=== PATIENT | male | born 1975 | race Caucasian/White ===

== ENCOUNTER 2023-12-30 14:06 | Emergency (ER) | payer MEDICAID, SELFPAY ==
[2023-12-30] VITALS (38 sets, daily range): BP systolic 172–216; BP diastolic 80–122; PULSE 58–98; RESP 12–24; TEMP 36.9; O2SAT 98
--- NOTE | 2023-12-30 14:00 | DI.RAD_ITS ---
Exam(s) XR CHEST 2V PA LATERAL EXAM: XR CHEST 2V PA LATERAL CLINICAL HISTORY: chest pain. TECHNIQUE: 2D digital imaging was performed. COMPARISON: No exams were available for comparison FINDINGS: 2 views: Heart size is normal. The mediastinum is not widened. No confluent infiltrates nor pleural effusions evident on the frontal view. On the lateral view ther e is a density seen posteriorly projected over the posterior vertebral bodies, possibly significant. No pleural effusions IMPRESSION: Density projected posteriorly as seen on the lateral view, possibly significant. If clinically indic ated follow-up CT scan of the chest can be performed for added sensitivity and specificity. DATA REPOSITORY: RADIATION DOSE DELIVERED:
--- NOTE | 2023-12-30 14:00 | RT.EKG_ITS ---
APPROVED REPORT Exam: Resting ECG Reason for Exam: chest pain Patient Location: E HR:90 bpm ECG Measurements Heart Rate 90 AXIS VT 138 P 41 QRSd 88 QRS 39 QT 340 T 39 QTc 417 Conclusion Sinus rhythm. no stemi
[2023-12-30] MEDS: Aspirin 325 MG TAB PO (14:19)
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
[2023-12-30 14:52] LABS: HCT 39.8 % (40.0-50.0); MCH 31.8 pg (27.0-33.0); MCHC 35.2 % (32.0-36.0); MCV 91 fL (80-95); MPV 9.4 fL (8.0-11.0); Platelet Count 334 10^3/uL (130-400); RDW 12.9 % (11.8-14.1); RDW-SD 42.9 fL; WBC 9.26 10^3/uL (4.4-10.8)
[2023-12-30 15:06] LABS: Absolute Basophil Count 0.09 10^3/uL (0.0-0.2); Absolute Eosinophil Count 0.46 10^3/uL (0.0-0.7); Absolute Monocyte Count 0.46 10^3/uL (0.1-0.8); Absolute Neutrophil Count 4.44 10^3/uL (1.2-6.7); Atypical Lymphocytes % 15; Diff Comment Manual Differential; RBC Morphology Normal
[2023-12-30 15:10] LABS: ALT 24 U/L (16-63); AST 11 U/L (15-37); Albumin 3.7 g/dL (3.4-5.0); Alkaline Phosphatase 105 U/L (46-116); Anion Gap 8.9 mmol/L (3-11); BUN 11 mg/dL (7-18); Bilirubin, Total 0.8 mg/dL (0.2-1.0); CO2 32.1 mmol/L (21.0-32.0); CREATININE 0.7 mg/dL (0.70-1.30); Calcium 9.5 mg/dL (8.5-10.1); Chloride 102 mmol/L (98-107); Estimated GFR 112.25 (mL/min/1.73m2); Glucose 113 mg/dL (74-106); Potassium 3.6 mmol/L (3.5-5.1); Sodium 143 mmol/L (136-145); Total Protein 8.4 g/dL (6.4-8.2); Troponin I < 50 ng/L (< or =60)
[2023-12-30 18:07] LABS: Troponin I < 50 ng/L (< or =60)
[2023-12-30 18:07] LABS: *AMPHETAMINES SCREEN URINE Negative (Negative); *BARBITURATES SCREEN URINE Negative (Negative); *BENZODIAZEPINES SCREEN URINE Negative (Negative); Cannabinoids THC Positive (Negative); Cocaine Screen,Urine Negative (Negative); METHADONE URINE SCREEN Negative (Negative); OPIATES URINE SCREEN Negative (Negative); Tricyclic Antidepressants Negative (Negative)
== END 2023-12-30 18:39 | disposition home or self-care (01) ==
PROVIDERS: Emergency Provider Emergency Medicine
DX: R07.9 Chest pain, unspecified (principal); I10 Essential (primary) hypertension; F17.210 Nicotine dependence, cigarettes, uncomplicated
CPT/HCPCS: 36415; 80053; 80307; 93005; 99284; 71046; 84484; 85025; 93010

== ENCOUNTER 2024-01-07 12:20 | Emergency (ER) | payer MEDICAID, SELFPAY ==
--- NOTE | 2024-01-07 12:15 | RT.EKG_ITS ---
APPROVED REPORT Exam: Resting ECG Reason for Exam: Chest Pain Patient Location: E HR:79 bpm ECG Measurements Heart Rate 79 AXIS IL 142 P 0 QRSd 82 QRS 25 QT 370 T 31 QTc 424 Conclusion Sinus rhythm...normal P axis, V-rate 60- 99 Narrow complex normal sinus rhythm at a rate of 79. Normal axis. Intervals within normal limits. T wave flattening in aVL. No acute injury pattern. No ST segment abnormalities. Mild left lateral c hest wall ST segment depressions. Appear similar to prior dated earlier this month. No acute injury pattern.
[2024-01-07 12:31] VITALS: BP 183/95; PULSE 90; RESP 15; O2SAT 98
--- NOTE | 2024-01-07 12:45 | DI.CT_ITS ---
Exam(s) CT THORACIC SPINE WO EXAM: CT THORACIC SPINE WO CLINICAL HISTORY: back pain. TECHNIQUE: Imaging Protocol: Axial computed tomography images with coronal and sagittal reformatted images were created and reviewed. CONTRAST MATERIAL: Intravenous: None COMPARISON: No exams were available for comparison FINDINGS: Bones: In the peripheral field of view of this finding study we note subacute appearing fractures of the right 3rd, 4th, 5th, and 6th ribs, mildly displaced. There are no thoracic vertebral compression fractures. No listhesis. There is multilevel calcification of the anterior longitudinal ligament a nd partial fusion across some disc spaces. No obvious disc herniations evident in the thoracic spina l column. No osseous lesions. IMPRESSION: 1. Subacute appearing mildly displaced fractures of the right 3rd, 4th, 5th, and 6th ribs 2. No acute nor subacute appearing fractures of thoracic vertebral bodies. 3. No obvious thoracic disc herniations nor acute compromise of the thoracic spinal canal. Called to ER provider. RADIATION DOSE DELIVERED: Total DLP DATA REPOSITORY: All CT scans at this facility are submitted to the National Radiology Data Registry (NRDR) Dose Index Registry (DIR) with the [employer] (A[employer]). RADIATION OPTIMIZATION: All CT scans at this facility use at least one of these dose optimization te chniques: automated exposure control; mA and/or kV adjustment per patient size (includes targeted exa ms where dose is matched to clinical indication); or iterative reconstruction.
--- NOTE | 2024-01-07 12:45 | DI.CT_ITS ---
Exam(s) CT CERVICAL SPINE WO EXAM: CT CERVICAL SPINE WO CLINICAL HISTORY: neck pain, left neck pain with radiation left arm. TECHNIQUE: Imaging Protocol: Axial computed tomography images with coronal and sagittal reformatted images were created and reviewed COMPARISON: No exams were available for comparison FINDINGS: CERVICAL SPINE: There is no evidence of acute fracture. No significant prevertebral soft tissue swelling. No significant listhesis. Mild disc space narrowing at C4-5. Other disc spaces exhibit normal height. Facet joints appear unremarkable. No significant osseous lesions evident. There is a prominent calcific density seen dorsally behind the cervical spine measuring 2.5 cm cephal ocaudal by 0.5 cm by 0.8 cm. This is in the midline deep superficial fat layer and is probably relat ed to remote trauma. There are no fractures of the subjacent spinous processes. IMPRESSION: No evidence of cervical spine fracture, malalignment, nor acute compromise of the cervical spinal can al. Other finding as above. RADIATION DOSE DELIVERED: Total DLP DATA REPOSITORY: All CT scans at this facility are submitted to the National Radiology Data Registry (NRDR) Dose Index Registry (DIR) with the [employer] (ACR). RADIATION OPTIMIZATION: All CT scans at this facility use at least one of these dose optimization te chniques: automated exposure control; mA and/or kV adjustment per patient size (includes targeted exa ms where dose is matched to clinical indication); or iterative reconstruction.
--- NOTE | 2024-01-07 12:52 | DI.CT_ITS ---
Exam(s) CT CHEST PE CTA EXAM: CT CHEST PE CTA CLINICAL HISTORY: chest pain. TECHNIQUE: Imaging Protocol: CT angiography of the chest was performed using pulmonary embolus slime col. Multi planar reconstructions were performed. CONTRAST MATERIAL: Intravenous: Omnipaque 350 Contrast volume: 100 cc COMPARISON: CR XR CHEST 2V PA LATERAL from 12/30/2023 FINDINGS: CHEST: PULMONARY ARTERIES: There are no intraluminal filling defects to suggest acute pulmonary emboli. LUNGS: There are no infiltrates nor evidence of pulmonary infarction.. There are no pleural effusions . There is no abnormal lung density posteriorly. The finding described on recent chest x-ray correspon ds to a prominent lateral osteophyte in the thoracic spine. MEDIASTINUM: There is no hilar nor mediastinal adenopathy. Visualized thyroid unremarkable. CARDIAC: Heart size is upper normal. There is no pericardial effusion.Caliber of the thoracic aorta is within normal limits. No evidence of aortic dissection. There is no significant shift of the inte rventricular septum. PARTIALLY VISUALIZED UPPERMOST ABDOMEN: No obvious findings OSSEOUS: There are mildly displaced fractures of the right 4th, 5th, 6 ribs. No pneumothorax. No le ft rib fractures identified. No thoracic vertebral fractures. No sternal fracture.. IMPRESSION: 1. No evidence of acute pulmonary emboli. No evidence of pulmonary infarction.No pleural effusions. No lung contusion. 2. There are mildly displaced fractures of the right 4th, 5th, and 6th ribs. No pneumothorax. 3. No evidence of aortic dissection nor pericardial effusion. Called by myself to ER provider. RADIATION DOSE DELIVERED: Total DLP DATA REPOSITORY: All CT scans at this facility are submitted to the National Radiology Data Registry (NRDR) Dose Index Registry (DIR) with the [employer] (ACR). RADIATION OPTIMIZATION: All CT scans at this facility use at least one of these dose optimization te chniques: automated exposure control; mA and/or kV adjustment per patient size (includes targeted exa ms where dose is matched to clinical indication); or iterative reconstruction.
[2024-01-07 13:16] LABS: ESR 24 mm/hr (0-15)
[2024-01-07 13:20] LABS: Abs Immature Grans 0.02 10^3/uL (0.0-0.06); Absolute Basophil Count 0.07 10^3/uL (0.0-0.2); Absolute Eosinophil Count 0.54 10^3/uL (0.0-0.7); Absolute Lymphocyte Count 3.49 10^3/uL (1.2-3.4); Absolute Monocyte Count 0.61 10^3/uL (0.1-0.8); Absolute Neutrophil Count 5.14 10^3/uL (1.2-6.7); Basophils % 0.7; Eosinophils % 5.5; HCT 42.7 % (40.0-50.0); HGB 14.6 g/dL (13.5-17.5); Immature Grans % 0.2; Lymphocytes % 35.4; MCH 31.1 pg (27.0-33.0); MCHC 34.2 % (32.0-36.0); MCV 91 fL (80-95); MPV 8.3 fL (8.0-11.0); Monocytes % 6.2; Platelet Count 388 10^3/uL (130-400); RDW 12.4 % (11.8-14.1); RDW-SD 41.2 fL; WBC 9.87 10^3/uL (4.4-10.8)
[2024-01-07] MEDS: Ketorolac 15 MG/ML VIAL IVP (13:23)
[2024-01-07] MEDS: ACETAMINOPHEN 1,000 MG/100 ML BTL 400 MG IVPB (13:23)
[2024-01-07 14:13] LABS: ALT 26 U/L (16-63); AST 13 U/L (15-37); Albumin 3.6 g/dL (3.4-5.0); Alkaline Phosphatase 94 U/L (46-116); Anion Gap 8.4 mmol/L (3-11); BUN 18 mg/dL (7-18); Bilirubin, Total 0.4 mg/dL (0.2-1.0); C-Reactive Protein 0.79 mg/dL (<or=0.5); CO2 30.6 mmol/L (21.0-32.0); CREATININE 0.7 mg/dL (0.70-1.30); Calcium 8.8 mg/dL (8.5-10.1); Chloride 102 mmol/L (98-107); Estimated GFR 112.25 (mL/min/1.73m2); Glucose 106 mg/dL (74-106); Lipase 121 U/L (16-77); NT-proBNP 23 pg/mL (<300); Potassium 3.9 mmol/L (3.5-5.1); Sodium 141 mmol/L (136-145); Total Protein 8.2 g/dL (6.4-8.2); Troponin I < 50 ng/L (< or =60)
[2024-01-07] MEDS: Normal Saline - Diluent 50 ML VIAL IJ (14:35)
[2024-01-07] MEDS: Omnipaque 350 MG/ML 100 ML BTL IJ (14:36)
[2024-01-07 14:54] LABS: COVID-19 PCR Negative (Negative); Influenza A PCR Negative (Negative); Influenza B PCR Negative (Negative); RSV PCR Negative (Negative)
[2024-01-07 14:55] LABS: Source Nasopharynx
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
[2024-01-07 15:59] LABS: Bilirubin Negative (Negative); Blood Trace-intact (Negative); Clarity Clear (Clear); Glucose Negative (Negative); Ketones Negative (Negative); Leukocyte Esterase Negative (Negative); Nitrite Negative (Negative); Specific Gravity 1.015 (1.005-1.025); Urobilinogen 0.2 mg/dL (Up to 0.2)
--- NOTE | 2024-01-07 16:05 | NUR.NOTE ---
Referral given to Care Management to help patient establish a Primary Care Provider as soon as possible.
[2024-01-07 16:18] VITALS: BP 183/95; PULSE 90; RESP 15; O2SAT 98
[2024-01-07 16:19] LABS: Bacteria Negative HPF (Negative); C & S Indicated? No; Crystals Negative HPF (Negative); Epithelial Cells Rare HPF (Negative); Mucus Negative (Negative); WBC Negative HPF (0-5)
[2024-01-08 08:57] LABS: Lyme Ab w Rflx to Lyme Confirm Negative (Negative)
[2024-01-10 14:46] LABS: Anaplasma phagocytophilum Negative (Negative); B. miyamotoi PCR Negative (Negative); Babesia divergens/MO-1 Negative (Negative); Babesia duncani Negative (Negative); Babesia microti Negative (Negative); Ehrlichia chaffeensis Negative (Negative); Ehrlichia ewingii/canis Negative (Negative); Ehrlichia muris eauclairensis Negative (Negative)
== END 2024-01-07 16:19 | disposition home or self-care (01) ==
PROVIDERS: Emergency Provider Physician Assistant
DX: S22.41XA Multiple fractures of ribs, right side, initial encounter for closed fracture (principal); R07.9 Chest pain, unspecified; M54.50 Low back pain, unspecified; I10 Essential (primary) hypertension; Z11.52 Encounter for screening for COVID-19; X58.XXXA Exposure to other specified factors, initial encounter
CPT/HCPCS: 71275; 80053; 83690; 85652; 87637; 87798; 93005; 96374; 96375; 99285; 72125; 72128; 81003; 81015; 83880; 84484; 85025; 86140; 86618; 93010; 99284; J0131; J1885; J3490

== ENCOUNTER 2024-01-28 12:36 | Emergency (ER) | payer OTHER, SELFPAY ==
[2024-01-28 12:42] VITALS: BP 165/74; PULSE 79; RESP 16; TEMP 36.5; O2SAT 96
--- NOTE | 2024-01-28 12:45 | DI.RAD_ITS ---
Exam(s) XR ANKLE RT COMPLETE EXAM: XR ANKLE RT COMPLETE CLINICAL HISTORY: right anterior distal tibia pain after trip. TECHNIQUE: 2D digital imaging was performed. COMPARISON: No exams were available for comparison FINDINGS: 3 views There is a nondisplaced vertical fracture in the medial aspect of the distal tibia, just lateral to t he base of the medial malleolus. This vertically orientated fracture line involves the articular soren face of the tibiotalar joint. No displacement. No widening of the ankle mortise. Talar dome unrema rkable. Lateral malleolus unremarkable. IMPRESSION: Distal tibial fracture as described above. Fracture line involves the articular surface of the tibio talar joint, without an obvious step. DATA REPOSITORY: RADIATION DOSE DELIVERED:
--- NOTE | 2024-01-28 12:54 | ED.GENADUL_ITS ---
Discharge Plan Disposition Patient Disposition: Home Condition: Good Discharge Details Clinical Impression: Closed right tibial fracture Primary Care Provider: Isiah Murray ED Provider: Juan Pablo Kim Home Meds and New Rx's Prescriptions: No Action lidocaine 5 % adhesive patch,medicated 1 patch topical BID Qty: 30 1RF Rx Instructions: leave on most painful area for up to 12 hrs cyclobenzaprine 10 mg tablet 10 mg PO TID PRNQty: 15 0RF Discharge Instructions Instructions: Ankle Fracture (ED) Additional Instructions: At this time your ankle demonstrates evidence of fracture in the distal tibia. This may require surgery. Orthopedics would like to follow closely with you to further discuss this. Dr. Middleton will contact you. Please remain nonweightbearing for the time being. Use the crutches to keep off the foot. If you notice any worsening of your symptoms, or any new symptoms such as vomiting, diarrhea, fever, chills, shortness of breath, chest pain, numbness, weakness, or fainting , please return immediately to the emergency department for reevaluation. Please follow up with your primary care provider as soon as possible for reassessment and reevaluation. As always, it was a pleasure participating in your medical care today. Stand Alone Forms: Work Release Referrals: Isiah Murray NP [Primary Care Provider] - Mustapha Middleton MD [ [facility] STAFF PHYSICIAN] - [facility] General Date/Time Provider Initiated Documentation: 01/28/24 12:50 . HPI Narrative: 48-year-old male with no significant past medical history presents today for evaluation of right ankle pain. Patient states yesterday he was at work when his toe caught on a rubber mat and it caused his foot to be hyper plantarflexed. He heard a pop at that time and developed some pain in the anterior aspect of his ankle. He has had pain since then with movement. He is taking Tylenol and Motrin with no improvement. Pain to bear weight. Mild pain at rest. No numbness or tingling. No other complaints at this time. Related Data Home Medications Medication Instructions Recorded Confirmed cyclobenzaprine 10 mg tablet 10 mg PO TID PRN #15 tabs 01/07/24 01/28/24 lidocaine 5 % topical patch 1 patch topical BID #30 ea 01/15/24 01/28/24 Previous Rx's Medication Instructions Recorded cyclobenzaprine 10 mg tablet 10 mg PO TID PRN #15 tabs 01/07/24 lidocaine 5 % topical patch 1 patch topical BID #30 ea 01/15/24 Allergies Allergy/AdvReac Type Severity Reaction Status Date / Time No Known Allergies Allergy Unverified 01/28/24 12:45 General Stated Complaint: Orthopedic GRUPO: 3 Review of Systems All systems reviewed & are unremarkable except as noted in HPI and below Exam Narrative Exam Narrative: 1.Const: Well-nourished, Well-developed, appearing stated age 2.Eyes: PERRL, no conjunctival injection, and symmetrical lids. 3.ENT: Atraumatic external nose and ears. Moist MM. Neck: Symmetric, trachea midline, No thyromegaly. 4.CVS: +S1/S2, No murmurs or gallops. Peripheral pulses 2+ and equal in all extremities. Brisk capillary refill in all extremities. 5.RESP: Unlabored respiratory effort. Clear to auscultation bilaterally. No wheezes rales or rhonchi 6.GI: Soft, Nontender/Nondistended, No hepatosplenomegaly. No guarding or rebound. 7.MSK: Minimal tenderness of the distal tibia, no significant tenderness over the medial or lateral malleolus. No calcaneal or talus tenderness. Brisk capillary refill, normal sensation, normal pulses. Pain with plantar and dorsiflexion as well as weightbearing 8.Skin: Warm, Dry. No rashes or lesions. 9.Neuro: setter automatic spinning lathe II-XII grossly intact. Sensation grossly intact, no focal neurologic deficits. 10.Psych: (AAO) x3. Appropriate mood and affect Course Vital Signs Vital signs: Vital Signs Temperature 36.5 C 01/28/24 12:42 Pulse 79 01/28/24 12:42 Respiratory Rate 16 01/28/24 12:42 Blood Pressure 165/74 H 01/28/24 12:42 Pulse Oximetry 96 01/28/24 12:42 Temperature 36.5 C 01/28/24 12:42 Temperature Source Oral 01/28/24 12:42 Pulse 79 01/28/24 12:42 Respiratory Rate 16 01/28/24 12:42 Respiratory Effort Normal 01/28/24 12:44 Blood Pressure 165/74 H 01/28/24 12:42 Blood Pressure Position Sitting 01/28/24 12:42 Pulse Oximetry 96 01/28/24 12:42 Oxygen Delivery Method Room Air 01/28/24 12:42 Oxygen Flow Rate 0 01/28/24 12:42 Medical Decision Making 48-year-old male with no significant past medical history presents today for evaluation of right ankle pain. Patient states yesterday he was at work when his toe caught on a rubber mat and it caused his foot to be hyper plantarflexed. He heard a pop at that time and developed some pain in the anterior aspect of his ankle. He has had pain since then with movement. He is taking Tylenol and Motrin with no improvement. Pain to bear weight. Mild pain at rest. No numbness or tingling. No other complaints at this time. Physical exam demonstrates Minimal tenderness of the distal tibia, no significant tenderness over the medial or lateral malleolus. No calcaneal or talus tenderness. Brisk capillary refill, normal sensation, normal pulses. Pain with plantar and dorsiflexion as well as weightbearing. Exam concerning for distal tibial injury. Ankle otherwise appears stable. Will get x-rays, monitor closely and reassess. 2:49 PM X-ray shows evidence of a distal tibial fracture, discussed the case with Dr. Middleton, he requested CT imaging for further fracture evaluation. CT imaging shows concerning findings fracture is noted on x-ray. Dr. Middleton would like to follow-up with the patient in the clinic. Patient has been splinted with a posterior and sugar-tong. He tolerated this well. Patient will be discharged home with close outpatient follow-up. Dr. Middleton did discuss potential soren gical options with the patient. Discussed red flags which return. I have extensively reviewed the treatment plan and discharge instructions with the patient. I have addressed all patient concerns at this time. The patient was made aware of what symptoms to monitor for that would warrant a return to the emergency department. Discussed the plan with the patient, they demonstrate verbal understanding and agreement with our assessment and plan at this time. The documentation in this chart was dictated using [employer] dictation software. Please excuse any dictation errors. FINDINGS: 3 views There is a nondisplaced vertical fracture in the medial aspect of the distal tibia, just lateral to the base of the medial malleolus. This vertically orientated fracture line involves the articular surface of the tibiotalar joint. No displacement. No widening of the ankle mortise. Talar dome unremarkable. Lateral malleolus unremarkable. IMPRESSION: Distal tibial fracture as described above. Fracture line involves the articular surface of the tibiotalar joint, without an obvious step. Quality:SDOH Health Related Social Needs: No Data to Display PFSH All Active Problems (Updated 01/28/24 @ 15:20 by Juan Pablo Kim DO) Closed right tibial fracture (Acute) Musculoskeletal chest pain (Acute) Back pain (Acute) Closed rib fracture (Acute) Hypertension (Chronic) Chest pain (Acute) Social History Smoking/Tobacco Use Status: Current every day Tobacco Type: cigarettes Smoking risk assessment performed?: Yes Alcohol Intake: current Alcohol Intake frequency: a few times a week Alcohol type: beer Drug use: Daily Substance use type: marijuana Housing: apartment Do you feel safe at home: Yes Do you feel safe in your relationship?: Yes
--- NOTE | 2024-01-28 13:45 | DI.CT_ITS ---
Exam(s) CT LOWER EXTREMITY RT WO EXAM: CT LOWER EXTREMITY RT WO CLINICAL HISTORY: distal tib fx, eval fracture site. TECHNIQUE: Imaging Protocol: Axial computed tomography images with coronal and sagittal reformatted images were created and reviewed. CONTRAST MATERIAL: Intravenous: Omnipaque 350 Contrast volume:structured data in ml Contrast route:I V - Oral: yes / no COMPARISON: CR XR ANKLE RT COMPLETE from 01/28/2024 FINDINGS: OSSEOUS: There is vertically orientated nondisplaced fracture in the distal tibia which extends from the medial metaphyseal cortex down to the articular surface of the medial aspect of the tibiotalar lacey int. There is no displacement. There is no step at the articular surface of the tibial plafond and. No fractures of the fibula. No widening of the ankle mortise. Talar dome unremarkable. Small kaycee cific density is seen lateral to the base of the 5th metatarsal. This does not have the appearance o f an acute fracture fragment as it is corticated and lung to truly orientated. IMPRESSION: Nondisplaced of the distal tibia as described above. Fracture line extends to the articular surface of the tibiotalar joint. There is no step evident at the articular surface. RADIATION DOSE DELIVERED: 296.91mGy.cm Total DLP DATA REPOSITORY: All CT scans at this facility are submitted to the National Radiology Data Registry (NRDR) Dose Index Registry (DIR) with the [employer] ([employer]). RADIATION OPTIMIZATION: All CT scans at this facility use at least one of these dose optimization te chniques: automated exposure control; mA and/or kV adjustment per patient size (includes targeted exa ms where dose is matched to clinical indication); or iterative reconstruction.
[2024-01-28 15:23] VITALS: BP 165/74; PULSE 79; RESP 16; TEMP 36.5; O2SAT 96
== END 2024-01-28 15:25 | disposition home or self-care (01) ==
PROVIDERS: Emergency Provider Student in an Organized Health Care Education/Training Program; PCP Nurse Practitioner Family
DX: S82.391A Other fracture of lower end of right tibia, initial encounter for closed fracture (principal); W01.0XXA Fall on same level from slipping, tripping and stumbling without subsequent striking against object, initial encounter; Y93.01 Activity, walking, marching and hiking; Y92.89 Other specified places as the place of occurrence of the external cause; Y99.0 Civilian activity done for income or pay
CPT/HCPCS: 99285; 73610; 73700; 99284

== ENCOUNTER 2024-02-04 15:35 | Outpatient (CLI) | payer OTHER, MEDICAID, SELFPAY ==
--- NOTE | 2024-02-04 13:00 | DI.RAD_ITS ---
Exam(s) XR ANKLE RT COMPLETE EXAM: XR ANKLE RT COMPLETE CLINICAL HISTORY: evaluation of fracture. TECHNIQUE: 2D digital imaging was performed. Four views. COMPARISON: CR XR ANKLE RT COMPLETE from 01/28/2024 FINDINGS: BONES: There has been no change in the alignment of the distal tibial fracture. Minimal separation a t the articular surface. No additional fractures seen. No bony destructive lesion is seen. Calcanea l enthesophyte again noted. JOINTS: The ankle mortise is normally aligned. SOFT TISSUE: Swelling around ankle. IMPRESSION: Stable appearance of distal tibial fracture. DATA REPOSITORY: RADIATION DOSE DELIVERED:
== END 2024-02-04 15:36 | disposition home or self-care (01) ==
LOC: DIORS 15:36
PROVIDERS: Visit Provider Student in an Organized Health Care Education/Training Program
DX: S82.391D Other fracture of lower end of right tibia, subsequent encounter for closed fracture with routine healing (principal); X58.XXXD Exposure to other specified factors, subsequent encounter
CPT/HCPCS: 73610

== ENCOUNTER 2024-02-25 09:59 | Outpatient (CLI) | payer OTHER, SELFPAY ==
--- NOTE | 2024-02-25 09:30 | DI.RAD_ITS ---
Exam(s) XR ANKLE RT COMPLETE EXAM: XR ANKLE RT COMPLETE CLINICAL HISTORY: F/U FRACTURE. TECHNIQUE: 2D digital imaging was performed of the right ankle. Four images were obtained. AP, lat eral and oblique views were obtained. COMPARISON: CR XR ANKLE RT COMPLETE from 02/04/2024 FINDINGS: BONES: There is been no change in alignment of the nondisplaced fracture involving the distal tibia. No new fractures identified. There is a small enthesophyte at the posterior calcaneus. No bony luís tructive lesion is seen. JOINTS: The ankle mortise is normally aligned. SOFT TISSUE: There is soft tissue swelling about the ankle. IMPRESSION: Stable alignment of the distal tibial fracture. DATA REPOSITORY: RADIATION DOSE DELIVERED:
== END 2024-02-25 10:00 | disposition home or self-care (01) ==
LOC: DIORS 10:00
PROVIDERS: Visit Provider Student in an Organized Health Care Education/Training Program
DX: S82.891D Other fracture of right lower leg, subsequent encounter for closed fracture with routine healing (principal); X58.XXXD Exposure to other specified factors, subsequent encounter
CPT/HCPCS: 73610

== ENCOUNTER 2024-03-31 11:40 | Outpatient (CLI) | payer OTHER, SELFPAY ==
--- NOTE | 2024-03-31 09:00 | DI.RAD_ITS ---
Exam(s) XR ANKLE RT COMPLETE EXAM: XR ANKLE RT COMPLETE CLINICAL HISTORY: F/U ANKLE FX. TECHNIQUE: 2D digital imaging was performed. COMPARISON: CR XR ANKLE RT COMPLETE from 02/04/2024 CR XR ANKLE RT COMPLETE from 02/25/2024 FINDINGS: 3 views Distal tibial fracture site at junction of tibia and medial malleolus is again noted and appears stab le. Fracture line is still faintly visible but without displacement evident. No other fractures orbert dent. No widening the ankle mortise. Talar dome remains unremarkable. No prominent ankle joint eff usion. IMPRESSION: Continued stable appearance at the distal tibial fracture site. DATA REPOSITORY: RADIATION DOSE DELIVERED:
== END 2024-03-31 11:41 | disposition home or self-care (01) ==
LOC: DIORS 11:40
PROVIDERS: Visit Provider Student in an Organized Health Care Education/Training Program
DX: S82.891A Other fracture of right lower leg, initial encounter for closed fracture (principal)
CPT/HCPCS: 73610